=== PATIENT | male | born 1930 | race Caucasian/White ===

== ENCOUNTER → 2017-01-22 | Outpatient (CLI) | payer MEDICARE, MEDICAID ==
[2017-01-22 13:34] LABS: HEMATOCRIT 33.6 % (37.9-51.0); HEMOGLOBIN 11.1 g/dL (13.5-17.0); HGB HCT DIFFERENCE -0.3; MEAN CORPUSCULAR HEMOGLOBIN 31.1 pg (27.0-33.4); MEAN CORPUSCULAR HGB CONC 33.1 g/dL (32.0-36.0); MEAN CORPUSCULAR VOLUME 94 fl (80-97); RED BLOOD COUNT 3.57 10^6/uL (4.35-5.55); RED CELL DISTRIBUTION WIDTH 13.5 % (11.5-14.0); WHITE BLOOD COUNT 5.9 10^3/uL (4.0-10.5)
[2017-01-22 13:57] LABS: ALANINE AMINOTRANSFERASE 26 U/L (21-72); ALBUMIN 3.8 g/dL (3.5-5.0); ALKALINE PHOSPHATASE 105 U/L (38-126); ANION GAP 9 (5-19); ASPARTATE AMINO TRANSFERASE 22 U/L (17-59); BILIRUBIN,DIRECT 0.3 mg/dL (0.0-0.4); BILIRUBIN,TOTAL 0.4 mg/dL (0.2-1.3); BLOOD UREA NITROGEN 39 mg/dL (7-20); CALCIUM 9.1 mg/dL (8.4-10.2); CARBON DIOXIDE 25 mmol/L (22-30); CHLORIDE 108 mmol/L (98-107); CREATININE RESULT 1.52 mg/dL (0.52-1.25); GLUCOSE 117 mg/dL (75-110); POTASSIUM 5.1 mmol/L (3.6-5.0); SODIUM 141.6 mmol/L (137-145); TOTAL PROTEIN 6.6 g/dL (6.3-8.2)
== END ==
LOC: LAB 13:04
PROVIDERS: ATTEND Internal Medicine Geriatric Medicine
DX: I10 Essential (primary) hypertension (principal); E55.9 Vitamin D deficiency, unspecified
CPT/HCPCS: 36415; 80053; 82306; 85027

== ENCOUNTER → 2017-01-23 | Outpatient (CLI) | payer MEDICARE, MEDICAID ==
--- NOTE | 2017-01-23 12:23 | RADIOLOGY REPORT (SQ) ---
EXAM DESCRIPTION: CT ABD/PELVIS ORAL ONLY COMPLETED DATE/TIME: 01/23/2017 9:38 am REASON FOR STUDY: LLQ PAIN R10.32 LEFT LOWER QUADRANT PAIN COMPARISON: 02/21/2015 TECHNIQUE: CT scan of the abdomen and pelvis performed with oral contrast and no intravenous contras t. Images reviewed with lung, soft tissue, and bone windows. Reconstructed coronal and sagittal MPR i mages reviewed. All images stored on PACS. All CT scanners at this facility use dose modulation, iterative reconstruction, and/or weight based d osing when appropriate to reduce radiation dose to as low as reasonably achievable (ALARA). [facility]: Dose Right [facility]: CareDose [facility]: Dose Right [facility]: Teradose 4D [facility]: Anesiva RADIATION DOSE: 10.82mGy. LIMITATIONS: None. FINDINGS: LOWER CHEST: No significant findings. No nodules or infiltrates. 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 PANCREAS: Atrophy. GALLBLADDER: No identified stones by CT criteria. No inflammatory changes to suggest cholecystitis. RIGHT KIDNEY AND URETER: No solid masses. No significant calcification. No hydronephrosis or hydroure ter. LEFT KIDNEY AND URETER: No solid masses. No significant calcification. No hydronephrosis or hydrouret er. AORTA AND RETROPERITONEUM: No aneurysm. No retroperitoneal masses or adenopathy. BOWEL AND PERITONEAL CAVITY: Postsurgical changes partial gastrectomy. Multiple diverticula, more ex tensive in the sigmoid colon. Suspected Meckel's diverticulum right lower quadrant not significantly changed. No obvious masses or inflammatory changes. No free fluid. APPENDIX: Not visualized. PELVIS, BLADDER, AND ABDOMINAL WALL: Prior ventral hernia repair. Symmetric enlargement of the prost ate. BONES: No acute findings. OTHER: No other significant finding. IMPRESSION: No acute findings in the abdomen or pelvis. TECHNICAL DOCUMENTATION: JOB ID: [id number] Quality ID # [id number]: Final reports with documentation of one or more dose reduction techniques (e.g., Au tomated exposure control, adjustment of the mA and/or kV according to patient size, use of iterative reconstruction technique) 2010 [employer]- All Rights Reserved
== END ==
LOC: RAD 09:13
PROVIDERS: ATTEND Internal Medicine Geriatric Medicine
DX: R10.32 Left lower quadrant pain (principal)
CPT/HCPCS: 74176

== ENCOUNTER 2017-02-01 13:50 | Emergency (ER) | payer MEDICARE, MEDICAID ==
--- NOTE | 2017-02-01 14:19 | ER Document Report ---
ED Medical Screen (RME) - General Chief Complaint: Urinary Frequency Stated Complaint: URINARY PROBLEM Time Seen by Provider: 02/01/17 14:04 Mode of Arrival: Ambulatory Information source: Patient TRAVEL OUTSIDE OF THE [place] IN LAST 30 DAYS: No - HPI Patient complains to provider of: Urinary retention Onset: Yesterday Quality of pain: Burning, Fullness, Pressure Associated Symptoms: Dysuria Notes: 02/01/17 14:16 Patient is an 86-year-old male who presents to the emergency room complaining of urinary retention, has not urinated since sometime yesterday, when he did urinate yesterday he states he only had small drops and it was painful - Related Data Allergies/Adverse Reactions: iodine Allergy (Verified 02/01/17 13:56) iron Allergy (Verified 02/01/17 13:56) IV dye Allergy (Uncoded 02/01/17 13:56) Past Medical History Renal/ Medical History: Denies: Hx Peritoneal Dialysis Physical Exam - Vital signs Vitals: Temp Pulse Resp BP Pulse Ox 97.8 F 84 18 123/49 L 95 02/01/17 13:58 02/01/17 13:58 02/01/17 13:58 02/01/17 13:58 02/01/17 13:58 Course - Vital Signs Vital signs: Temp Pulse Resp BP Pulse Ox 97.8 F 84 18 123/49 L 95 02/01/17 13:58 02/01/17 13:58 02/01/17 13:58 02/01/17 13:58 02/01/17 13:58
--- NOTE | 2017-02-01 14:40 | ER Document Report ---
ED GI/ - General Mode of Arrival: Ambulatory - w/walker Information source: Patient TRAVEL OUTSIDE OF THE [place] IN LAST 30 DAYS: No - HPI Patient complains to provider of: Dysuria, Urinary retention Onset: Yesterday - Refer to HPI notes Quality of pain: Burning Location: Low back Associated symptoms: Urinary retention Similar symptoms previously: No Recently seen / treated by doctor: Yes <ANTHONY PADILLA - Last Filed: 02/01/17 17:42> <RODOLFO NORTON - Last Filed: 02/01/17 19:35> - General Chief Complaint: Urinary Retention Stated Complaint: URINARY PROBLEM Time Seen by Provider: 02/01/17 14:04 Notes: Patient is an 86-year old male presenting to the emergency department for urinary retention. Patient states the last time he urinated was yesterday before noon. Patient states he feels like he has to go but he can't and states he only has drops of urine. Patient also complains of some mild back pain, worse on the left, and some mild abdominal pain. Patient states he has an enlarged prostate. Patient denies any hematuria. Patient states he had similar symptoms once before several years ago consisting of hematuria and retention. Patient's primary care physician is Dr. Ayon. Patient also states he had a CT of the abdomen/pelvis on 01/23/17 which was ordered by Dr. Ayon; this CT showed no acute findings. Patient states he has a history of CVA with some residual tremors, dementia, and osteoarthritis. (ANTHONY PADILLA) - Related Data Allergies/Adverse Reactions: iodine Allergy (Verified 02/01/17 13:56) iron Allergy (Verified 02/01/17 13:56) IV dye Allergy (Uncoded 02/01/17 13:56) Past Medical History - General Information source: Patient - Social History Smoking Status: Never Smoker Cigarette use (# per day): No Chew tobacco use (# tins/day): No Frequency of alcohol use: None Drug Abuse: None Family History: None Patient has suicidal ideation: No Patient has homicidal ideation: No Neurological Medical History: Reports: Hx Cerebrovascular Accident - 2015 Musculoskeltal Medical History: Reports Hx Arthritis - OA Psychiatric Medical History: Reports: Hx Dementia Surgical Hx: Negative - Immunizations Hx Diphtheria, Pertussis, Tetanus Vaccination: Yes <ANTHONY PADILLA - Last Filed: 02/01/17 17:42> Review of Systems - Review of Systems Constitutional: No symptoms reported EENT: No symptoms reported Cardiovascular: No symptoms reported Respiratory: No symptoms reported Gastrointestinal: See HPI Genitourinary: See HPI, Burning, Retention Male Genitourinary: See HPI Musculoskeletal: See HPI Skin: No symptoms reported Hematologic/Lymphatic: No symptoms reported Neurological/Psychological: No symptoms reported -: Yes All other systems reviewed and negative <ANTHONY PADILLA - Last Filed: 02/01/17 17:42> Physical Exam - Vital signs Interpretation: Normal - General General appearance: Appears well, Alert In distress: Mild - HEENT Head: Normocephalic, Atraumatic Eyes: Normal Pupils: PERRL Mucous membranes: Moist - Respiratory Respiratory status: No respiratory distress Chest status: Nontender Breath sounds: Normal Chest palpation: Normal - Cardiovascular Rhythm: Regular Heart sounds: Normal auscultation Murmur: No - Abdominal Inspection: Normal Distension: Distended - mildly Bowel sounds: Normal Tenderness: Nontender Organomegaly: No organomegaly - Back Back: Normal, CVA tenderness - left sided - Extremities General upper extremity: Normal inspection, Normal ROM, Normal strength General lower extremity: Normal inspection, Normal ROM, Normal strength - Neurological Neuro grossly intact: Yes Cognition: Normal Orientation: AAOx4 Smyer Coma Scale Eye Opening: Spontaneous Smyer Coma Scale Verbal: Oriented Smyer Coma Scale Motor: Obeys Commands Shanthi Coma Scale Total: 15 Speech: Normal - Psychological Associated symptoms: Normal affect, Normal mood - Skin Skin Temperature: Warm Skin Moisture: Dry Skin Color: Normal <ANTHONY PADILLA - Last Filed: 02/01/17 17:42> - Genitourinary Inspection: Normal Tenderness: Nontender Cremasteric reflex: Normal Scrotum: Normal <RODOLFO NORTON - Last Filed: 02/01/17 19:35> - Vital signs Vitals: Temp Pulse Resp BP Pulse Ox 97.8 F 84 18 123/49 L 95 02/01/17 13:58 02/01/17 13:58 02/01/17 13:58 02/01/17 13:58 02/01/17 13:58 Course - Laboratory Result Diagrams: 02/01/17 15:20 02/01/17 15:20 <ANTHONY PADILLA - Last Filed: 02/01/17 17:42> - Laboratory Result Diagrams: 02/01/17 15:20 02/01/17 15:20 <RODOLFO NORTON - Last Filed: 02/01/17 19:35> - Re-evaluation Re-evalutation: 02/01/17 15:59 Re-evaluated patient at this time. Discussed urine lab results with patient and answered patient's questions. 02/01/17 17:43 Reevaluate patient at this time. Discussed blood work lab results with patient and answered patient's questions. (ANTHONY PADILLA) 02/01/17 16:31 Patient is an 86-year-old male who comes in for urinary retention. Patient is also not been drinking a lot of fluids because he was having difficulty with urination. Patient has a urinary tract infection and will be started on ceftriaxone here. Patient with some mild acute renal insufficiency. We will watch his urine output and likely he will be discharged. Patient agrees with this plan. 02/01/17 18:33 Patient feels well at this time. He is not orthostatic. He has been given Rocephin. He will be discharged home with Keflex and is to follow-up with his doctor this week. We will leave the catheter in place at this time. This is been discussed with the patient and his daughter who agree with this plan. He is to return immediately if he has any nausea vomiting, fever, or any other concerns. Is taking p.o. well and has good urine output time of discharge from the emergency department. (RODOLFO NORTON) - Vital Signs Vital signs: Temp Pulse Resp BP Pulse Ox 97.3 F 70 18 141/52 H 95 02/01/17 18:49 02/01/17 18:49 02/01/17 18:49 02/01/17 18:49 02/01/17 18:49 - Laboratory Laboratory results interpreted by me: 02/01/17 02/01/17 02/01/17 15:00 15:20 15:20 RBC 3.55 L Hgb 11.0 L Hct 33.9 L Lymphocytes % 11.9 L Potassium 5.4 H BUN 30 H Creatinine 1.59 H Est GFR ( Amer) 50 L Est GFR (Non-Af Amer) 41 L ALT 19 L Urine Protein 100 H Urine Blood LARGE H Urine Nitrite POSITIVE H Ur Leukocyte Esterase LARGE H Discharge <ANTHONY PADILLA - Last Filed: 02/01/17 17:42> <RODOLFO NORTON - Last Filed: 02/01/17 19:35> - Discharge Clinical Impression: Urinary retention, Acute renal insufficiency UTI (urinary tract infection) Qualifiers: Urinary tract infection type: site unspecified Hematuria presence: with hematuria Qualified Code(s): N39.0 - Urinary tract infection, site not specified Condition: Stable Disposition: HOME, SELF-CARE Instructions: Urinary Tract Infection ([facility]), Urinary Retention ([facility]) Additional Instructions: Please return immediately if you have any worsening or concerning symptoms, such as fever, nausea vomiting, or back pain. Prescriptions: Cephalexin Monohydrate [Keflex 500 mg Capsule] 500 mg PO QID #40 capsule Referrals: ELIU AYON MD [Primary Care Provider] - 02/03/17 Scribe Attestation: 02/01/17 19:34 I personally performed the services described in the documentation, reviewed and edited the documentation which was dictated to the scribe in my presence, and it accurately records my words and actions. (RODOLFO NORTON) Scribe Documentation - Scribe Written by John Paul:: John Paul Gauthier, 02/01/17 15:00 acting as scribe for :: Agus <ANTHONY PADILLA - Last Filed: 02/01/17 17:42>
[2017-02-01] MEDS ORDERED: NORMAL SALINE 500 ML IV ONE (15:07)
[2017-02-01 15:23] LABS: APPEARANCE,URINE CLOUDY; BILIRUBIN,URINE NEGATIVE (NEGATIVE); GLUCOSE, URINE NEGATIVE (NEGATIVE); KETONES,URINE NEGATIVE (NEGATIVE); LEUKOCYTE ESTERASE,URINE LARGE (NEGATIVE); NITRITE,URINE POSITIVE (NEGATIVE); PROTEIN,URINE 100 mg/dL (NEGATIVE); URINE SPECIFIC GRAVITY 1.015; UROBILINOGEN,URINE NEGATIVE mg/dL (<2.0)
[2017-02-01 15:36] LABS: ABSOLUTE EOSINOPHILS # (AUTO) 0.1 10^3/uL (0.0-0.6); ABSOLUTE MONOCYTES (AUTO) 0.9 10^3/uL (0.1-1.4); ABSOLUTE NEUT (AUTO) 6.2 10^3/uL (1.7-8.2); BASOPHILS % (AUTO) 0.3 % (0-2); EOSINOPHILS % (AUTO) 1.6 % (0-6); HEMATOCRIT 33.9 % (37.9-51.0); HGB HCT DIFFERENCE -0.9; LYMPHOCYTES % (AUTO) 11.9 % (13-45); MEAN CORPUSCULAR HEMOGLOBIN 30.9 pg (27.0-33.4); MEAN CORPUSCULAR HGB CONC 32.3 g/dL (32.0-36.0); MEAN CORPUSCULAR VOLUME 96 fl (80-97); MONOCYTES % (AUTO) 10.6 % (3-13); RED BLOOD COUNT 3.55 10^6/uL (4.35-5.55); RED CELL DISTRIBUTION WIDTH 13.6 % (11.5-14.0); SEGMENTED NEUTROPHILS % (AUTO) 75.6 % (42-78); WHITE BLOOD COUNT 8.2 10^3/uL (4.0-10.5)
[2017-02-01 15:49] LABS: ALANINE AMINOTRANSFERASE 19 U/L (21-72); ALBUMIN 3.6 g/dL (3.5-5.0); ALKALINE PHOSPHATASE 96 U/L (38-126); ANION GAP 8 (5-19); ASPARTATE AMINO TRANSFERASE 17 U/L (17-59); BILIRUBIN,DIRECT 0.3 mg/dL (0.0-0.4); BILIRUBIN,TOTAL 0.6 mg/dL (0.2-1.3); BLOOD UREA NITROGEN 30 mg/dL (7-20); CARBON DIOXIDE 26 mmol/L (22-30); CHLORIDE 107 mmol/L (98-107); CREATININE RESULT 1.59 mg/dL (0.52-1.25); GLUCOSE 103 mg/dL (75-110); POTASSIUM 5.4 mmol/L (3.6-5.0); SODIUM 141.2 mmol/L (137-145); TOTAL PROTEIN 6.4 g/dL (6.3-8.2)
[2017-02-01] MEDS ORDERED: CEFTRIAXONE 1 GM/D5W RTU 50 ML IV ONE (15:52)
[2017-02-01 18:51] VITALS: BP 141/52
== END 2017-02-01 18:56 | disposition home or self-care (01) ==
LOC: ER 13:50
DX: N39.0 Urinary tract infection, site not specified (principal); N28.9 Disorder of kidney and ureter, unspecified; R33.9 Retention of urine, unspecified
CPT/HCPCS: 99284; 51701; 96365; 36415; 87086; 85025; 87088; 80053; 81001; 87186; J7040; J0696

== ENCOUNTER 2017-08-08 10:28 | Emergency (ER) | payer MEDICARE, MEDICAID ==
[2017-08-08] MEDS ORDERED: ALBUTEROL SULFATE 0.083% NEB 2.5 MG/3 ML AMPUL NEB ONE (10:58)
--- NOTE | 2017-08-08 11:10 | ER Document Report ---
ED Medical Screen (RME) - General Mode of Arrival: Ambulatory Information source: Patient TRAVEL OUTSIDE OF THE [place] IN LAST 30 DAYS: No <JUAN M SULTANA - Last Filed: 08/08/17 11:07> <SANDI VILLA - Last Filed: 08/08/17 13:03> - General Chief Complaint: Congestion Stated Complaint: COUGH Time Seen by Provider: 08/08/17 10:52 Notes: Patient is an 86 year old male presenting to the emergnecy department complaining of cough and congestion onset 2 weeks ago. Patient states that he is unable to get rid of his cough. Patient denies fevers, vomiting, or chest pain. I have greeted and performed a rapid initial assessment of this patient. A comprehensive ED assessment and evaluation of the patient, analysis of test results and completion of the medical decision making process will be conducted by additional ED providers. (JUAN M SULTANA) - Related Data Allergies/Adverse Reactions: iodine Allergy (Verified 08/08/17 10:29) iron Allergy (Verified 08/08/17 10:29) IV dye Allergy (Uncoded 08/08/17 10:29) Past Medical History Neurological Medical History: Reports: Hx Cerebrovascular Accident - 2014 Renal/ Medical History: Denies: Hx Peritoneal Dialysis Musculoskeltal Medical History: Reports Hx Arthritis - OA Psychiatric Medical History: Reports: Hx Dementia - Immunizations Hx Diphtheria, Pertussis, Tetanus Vaccination: Yes <JUAN M SULTANA - Last Filed: 08/08/17 11:07> Physical Exam <JUAN M SULTANA - Last Filed: 08/08/17 11:07> <SANDI VILLA - Last Filed: 08/08/17 13:03> - Vital signs Vitals: Temp Pulse Resp BP Pulse Ox 97.8 F 73 18 129/49 H 96 08/08/17 10:37 08/08/17 10:37 08/08/17 10:37 08/08/17 10:37 08/08/17 10:37 - Notes Notes: GENERAL: Alert, interacts well. No acute distress. Cyanotic lips which patient states is baseline. LUNGS: Wheezes with cough, expiratory rhonchi in RLL. No respiratory distress. HEART: Regular rate and rhythm. No murmurs, gallops, or rubs. ABDOMEN: Soft, non-tender. Non-distended. Bowel sounds present in all 4 quadrants. (JUAN M SULTANA) Correction to exam rhonchi are in the left lower lobe. (SANDI VILLA) Course - Laboratory Result Diagrams: 08/08/17 12:09 08/08/17 12:19 <SANDI VILLA - Last Filed: 08/08/17 13:03> - Vital Signs Vital signs: Temp Pulse Resp BP Pulse Ox 97.8 F 73 18 129/49 H 96 08/08/17 10:37 08/08/17 10:37 08/08/17 10:37 08/08/17 10:37 08/08/17 10:37 - Laboratory Laboratory results interpreted by me: 08/08/17 08/08/17 12:09 12:19 RBC 3.35 L Hgb 10.6 L Hct 31.7 L Chloride 109 H BUN 36 H Creatinine 1.43 H Est GFR ( Amer) 56 L Est GFR (Non-Af Amer) 47 L ALT 19 L Total Protein 6.1 L Scribe Documentation - Scribe Written by Bossmane:: John Paul Saab, 08/08/2017 11:10 acting as scribe for :: Roberth <JUAN M SULTANA - Last Filed: 08/08/17 11:07>
--- NOTE | 2017-08-08 11:51 | RADIOLOGY REPORT (SQ) ---
EXAM DESCRIPTION: CHEST PA/LAT COMPLETED DATE/TIME: 08/08/2017 11:34 am REASON FOR STUDY: cough, wheeze, SOB, r/o pna, LLL COMPARISON: CT chest 02/21/2015 Two-view chest 05/27/2011, 09/01/2007 EXAM PARAMETERS: NUMBER OF VIEWS: two views TECHNIQUE: Digital Frontal and Lateral radiographic views of the chest acquired. RADIATION DOSE: NA LIMITATIONS: none FINDINGS: LUNGS AND PLEURA: Question early or developing infiltrate in the left lower lobe. Right lung clear. No pleural effusions. No pneumothorax. MEDIASTINUM AND HILAR STRUCTURES: No masses or contour abnormalities. HEART AND VASCULAR STRUCTURES: Heart normal size. No evidence for failure. BONES: No acute findings. HARDWARE: None in the chest. OTHER: No other significant finding. IMPRESSION: Question early or developing infiltrate left lower lobe TECHNICAL DOCUMENTATION: JOB ID: [id number] [employer]- All Rights Reserved
[2017-08-08] MEDS ORDERED: IPRATROPIUM/ALBUTEROL 0.5-2.5 MG/3 ML AMPUL NEB ONE ×2 (12:29)
[2017-08-08 12:33] LABS: ABSOLUTE EOSINOPHILS # (AUTO) 0.2 10^3/uL (0.0-0.6); ABSOLUTE MONOCYTES (AUTO) 0.5 10^3/uL (0.1-1.4); ABSOLUTE NEUT (AUTO) 4.2 10^3/uL (1.7-8.2); BASOPHILS % (AUTO) 0.4 % (0-2); EOSINOPHILS % (AUTO) 2.9 % (0-6); HEMATOCRIT 31.7 % (37.9-51.0); HEMOGLOBIN 10.6 g/dL (13.5-17.0); HGB HCT DIFFERENCE 0.1; LYMPHOCYTES % (AUTO) 28.8 % (13-45); MEAN CORPUSCULAR HEMOGLOBIN 31.7 pg (27.0-33.4); MEAN CORPUSCULAR HGB CONC 33.6 g/dL (32.0-36.0); MEAN CORPUSCULAR VOLUME 95 fl (80-97); MONOCYTES % (AUTO) 7.4 % (3-13); RED BLOOD COUNT 3.35 10^6/uL (4.35-5.55); RED CELL DISTRIBUTION WIDTH 13.6 % (11.5-14.0); SEGMENTED NEUTROPHILS % (AUTO) 60.5 % (42-78)
[2017-08-08 12:51] LABS: ALANINE AMINOTRANSFERASE 19 U/L (21-72); ALBUMIN 3.6 g/dL (3.5-5.0); ALKALINE PHOSPHATASE 89 U/L (38-126); ANION GAP 10 (5-19); ASPARTATE AMINO TRANSFERASE 19 U/L (17-59); BILIRUBIN,DIRECT 0.2 mg/dL (0.0-0.4); BILIRUBIN,TOTAL 0.4 mg/dL (0.2-1.3); BLOOD UREA NITROGEN 36 mg/dL (7-20); CALCIUM 9.3 mg/dL (8.4-10.2); CARBON DIOXIDE 24 mmol/L (22-30); CHLORIDE 109 mmol/L (98-107); CREATININE RESULT 1.43 mg/dL (0.52-1.25); GLUCOSE 108 mg/dL (75-110); POTASSIUM 4.4 mmol/L (3.6-5.0); SODIUM 142.5 mmol/L (137-145); TOTAL PROTEIN 6.1 g/dL (6.3-8.2)
[2017-08-08] MEDS ORDERED: ALBUTEROL SULFATE HFA (90 MCG/PUFF) 8 GM MDI (1 MDI/ER DISP) IH PRN (13:12)
--- NOTE | 2017-08-08 13:12 | ER Document Report ---
ED General - General Chief Complaint: Congestion Stated Complaint: COUGH Time Seen by Provider: 08/08/17 10:52 Mode of Arrival: Ambulatory Information source: Patient Notes: 86-year-old male presents with 2 week duration of cough congestion. Patient notes it is intermittently productive. Patient denies any fevers or chills denies any nausea vomiting or diarrhea. Patient was given breathing treatment prior to my arrival states he feels much better and wishes to go home TRAVEL OUTSIDE OF THE [place] IN LAST 30 DAYS: No - HPI Onset: Other - 2 week duration Onset/Duration: Persistent Quality of pain: No pain Severity: Mild Pain Level: Denies Associated symptoms: Productive cough, Shortness of breath Exacerbated by: Denies Relieved by: Other - Medication Similar symptoms previously: No Recently seen / treated by doctor: No - Related Data Allergies/Adverse Reactions: iodine Allergy (Verified 08/08/17 10:29) iron Allergy (Verified 08/08/17 10:29) IV dye Allergy (Uncoded 08/08/17 10:29) Past Medical History - General Information source: Patient - Social History Smoking Status: Former Smoker Cigarette use (# per day): No Chew tobacco use (# tins/day): No Smoking Education Provided: No Family History: None Patient has suicidal ideation: No Patient has homicidal ideation: No Neurological Medical History: Reports: Hx Cerebrovascular Accident - 2015 Renal/ Medical History: Denies: Hx Peritoneal Dialysis Musculoskeltal Medical History: Reports Hx Arthritis - OA Psychiatric Medical History: Reports: Hx Dementia - Immunizations Hx Diphtheria, Pertussis, Tetanus Vaccination: Yes Review of Systems - Review of Systems Notes: REVIEW OF SYSTEMS: CONSTITUTIONAL : Denies fever, chills, or sweats. Denies recent illness. EENT: Denies eye, ear, throat, or mouth pain or symptoms. Denies nasal or sinus congestion or discharge. Denies throat, tongue, or mouth swelling or difficulty swallowing. CARDIOVASCULAR: Denies chest pain. Denies palpitations or racing or irregular heart beat. Denies ankle edema. RESPIRATORY: Admits to cough shortness of breath GASTROINTESTINAL: Denies abdominal pain or distention. Denies nausea, vomiting , or diarrhea. Denies blood in vomitus, stools, or per rectum. Denies black, tarry stools. Denies constipation. GENITOURINARY: Denies difficulty urinating, painful urination, burning, frequency, blood in urine, or discharge. MUSCULOSKELETAL: Denies back or neck pain or stiffness. Denies joint pain or swelling. SKIN: Denies rash, lesions or sores. HEMATOLOGIC : Denies easy bruising or bleeding. LYMPHATIC: Denies swollen, enlarged glands. NEUROLOGICAL: Denies confusion or altered mental status. Denies passing out or loss of consciousness. Denies dizziness or lightheadedness. Denies headache. Denies weakness or paralysis or loss of use of either side. Denies problems with gait or speech. Denies sensory loss, numbness, or tingling. Denies seizures. PSYCHIATRIC: Denies anxiety or stress. Denies depression, suicidal ideation, or homicidal ideation. ALL OTHER SYSTEMS REVIEWED AND NEGATIVE. Dictation was performed using [employer] voice recognition software PHYSICAL EXAMINATION: GENERAL: Well-appearing, well-nourished and in no acute distress. HEAD: Atraumatic, normocephalic. EYES: Pupils equal round and reactive to light, extraocular movements intact, sclera anicteric, conjunctiva are normal. ENT: Nares patent, oropharynx clear without exudates. Moist mucous membranes. NECK: Normal range of motion, supple without lymphadenopathy LUNGS: Rhonchi at the left lower base no respiratory distress HEART: Regular rate and rhythm without murmurs ABDOMEN: Soft, nontender, nondistended abdomen. No guarding, no rebound. No masses appreciated. Musculoskeletal: Normal range of motion, no pitting or edema. No cyanosis. NEUROLOGICAL: Cranial nerves grossly intact. Normal speech, normal gait. Normal sensory, motor exams PSYCH: Normal mood, normal affect. SKIN: Warm, Dry, normal turgor, no rashes or lesions noted. Physical Exam - Vital signs Vitals: Temp Pulse Resp BP Pulse Ox 97.8 F 73 18 129/49 H 96 08/08/17 10:37 08/08/17 10:37 08/08/17 10:37 08/08/17 10:37 08/08/17 10:37 Course - Re-evaluation Re-evalutation: 08/08/17 15:55 Patient has no white count elevation his lab work looks well, he is in no distress he is resting comfortably, I did give him multiple breathing treatments since he felt the first improved his breathing significantly. Chest x-ray is consistent with an early infiltrate, I did discuss with the patient admission but he wishes to go home. Given that his vital signs are stable he looks well his lab work appears normal and there is an early infiltrate I do believe he will be stable for outpatient therapy however I did explain that if symptoms do worsen that he must return immediately for any other concerns After performing a Medical Screening Examination, I estimate there is LOW risk for ACUTE CORONARY SYNDROME, PULMONARY EMBOLI, RESPIRATORY FAILURE, SEPSIS OR MENINGITIS, thus I consider the discharge disposition reasonable. I have reevaluated this patient multiple times and no significant life threatening changes are noted. The patient and I have discussed the diagnosis and risks, and we agree with discharging home with close follow-up. We also discussed returning to the Emergency Department immediately if new or worsening symptoms occur. We have discussed the symptoms which are most concerning (e.g., changing or worsening pain, trouble swallowing or breathing, neck stiffness, fever) that necessitate immediate return. - Vital Signs Vital signs: Temp Pulse Resp BP Pulse Ox 97.8 F 73 18 129/49 H 96 08/08/17 10:37 08/08/17 10:37 08/08/17 10:37 08/08/17 10:37 08/08/17 10:37 - Laboratory Result Diagrams: 08/08/17 12:09 08/08/17 12:19 Laboratory results interpreted by me: 08/08/17 08/08/17 12:09 12:19 RBC 3.35 L Hgb 10.6 L Hct 31.7 L Chloride 109 H BUN 36 H Creatinine 1.43 H Est GFR ( Amer) 56 L Est GFR (Non-Af Amer) 47 L ALT 19 L Total Protein 6.1 L - Diagnostic Test Radiology reviewed: Image reviewed, Reports reviewed Discharge - Discharge Clinical Impression: Pneumonia Qualifiers: Pneumonia type: due to unspecified organism Laterality: left Lung location: upper lobe of lung Qualified Code(s): J18.1 - Lobar pneumonia, unspecified organism Condition: Stable Disposition: HOME, SELF-CARE Instructions: Pneumonia ([facility]) Prescriptions: Levofloxacin [Levaquin 750 mg Tablet] 750 mg PO DAILY #5 tablet Referrals: ELIU AYON MD [Primary Care Provider] - Follow up in 3-5 days
[2017-08-08 13:51] VITALS: BP 125/40
== END 2017-08-08 13:52 | disposition home or self-care (01) ==
LOC: ER 10:28
DX: J18.1 Lobar pneumonia, unspecified organism (principal); R05 Cough; R06.02 Shortness of breath; R09.89 Other specified symptoms and signs involving the circulatory and respiratory systems; Z91.041 Radiographic dye allergy status; Z88.8 Allergy status to other drugs, medicaments and biological substances; Z87.891 Personal history of nicotine dependence
CPT/HCPCS: 94640 ×2; 99284; 36415; 87040; 85025; 80053; 71020; A9270 ×2; J3490; J7620